=== PATIENT | female | born 1980 ===

== ENCOUNTER 2017-04-23 15:42 | Emergency (ER) | payer OTHER ==
[2017-04-23 15:51] VITALS: BP 113/60; PULSE 83; RESP 16; TEMP 98.1; O2SAT 97
--- NOTE | 2017-04-23 16:30 | ED PDOC ---
HPI: General Adult Time Seen by Provider: 04/23/17 16:00 Chief Complaint (Nursing): Headache Chief Complaint (Provider): Face pain History Per: Patient History/Exam Limitations: no limitations Onset/Duration Of Symptoms: Days Have you had recent travel within the past 21 days to any of the following countries: [place], [place], [place] or [place]?: No Current Symptoms Are (Timing): Still Present Additional Complaint(s): Pt. with cough, congestion, runny nose, face pain. Feels same as her previous sinus infections. Has chronic sinusitis. Mild headaches in frontal that is not worst in her life. No neck pain, numbness, tingles, weakness, fever, chills. Symptoms for 3 weeks. No chest pain, dyspnea. Green dc from nose. Past Medical History Reviewed: Nursing Documentation, Vital Signs Vital Signs: Last Vital Signs Temp 98.1 F 04/23/17 15:49 Pulse 83 04/23/17 15:49 Resp 16 04/23/17 15:49 BP 113/60 04/23/17 15:49 Pulse Ox 97 04/23/17 15:49 - Medical History Other PMH: chronic sinusitis - Surgical History Surgical History: Appendectomy - Family History Family History: States: Unknown Family Hx - Social History Current smoker - smoking cessation education provided: No Alcohol: None Drugs: Denies - Home Medications Home Medications: Ambulatory Orders Medication Instructions Recorded Azithromycin [Zithromax] 250 mg PO DAILY 5 Days tab 04/23/17 Ibuprofen [Motrin] 600 mg PO TID 7 Days tab 04/23/17 - Allergies Allergies/Adverse Reactions: Allergies Allergy/AdvReac Type Severity Reaction Status Date / Time Penicillins Allergy RASH Verified 04/23/17 15:51 Review of Systems ROS Statement: Except As Marked, All Systems Reviewed And Found Negative ENT: Positive for: Nose Pain, Nose Discharge, Nose Congestion Neurological: Positive for: Headache Physical Exam - Reviewed Nursing Documentation Reviewed: Yes Vital Signs Reviewed: Yes - Physical Exam Appears: Positive for: Non-toxic, No Acute Distress Head Exam: Positive for: ATRAUMATIC, NORMAL INSPECTION, NORMOCEPHALIC Skin: Positive for: Normal Color, Warm, DRY Eye Exam: Positive for: EOMI, Normal appearance, PERRL ENT: Positive for: Sinus Pain/Drainage (b/l), Nasal Congestion. Negative for: Pharyngeal Erythema, Tonsillar Exudate Neck: Positive for: Normal, Painless ROM, Supple Cardiovascular/Chest: Positive for: Regular Rate, Rhythm Respiratory: Positive for: CNT, Normal Breath Sounds Gastrointestinal/Abdominal: Positive for: Normal Exam, Bowel Sounds, Soft. Negative for: Tenderness Back: Positive for: Normal Inspection. Negative for: L CVA Tenderness, R CVA Tenderness Extremity: Positive for: Normal ROM. Negative for: Tenderness, Pedal Edema Neurologic/Psych: Positive for: Alert, money laundering investigator II-XII, Oriented. Negative for: Motor/Sensory Deficits - ECG O2 Sat by Pulse Oximetry: 97 Pulse Ox Interpretation: Normal - Progress ED Course And Treament: 1640: Stable. AAOx3. Pain controlled. rx zithromax. URI vs sinusitis. Disposition - Clinical Impression Clinical Impression: URI (upper respiratory infection), Sinusitis - Patient ED Disposition Is Patient to be Admitted: Yes Counseled Patient/Family Regarding: Studies Performed, Diagnosis - Disposition Referrals: [facility] [Outside] - 04/24/17 Disposition: Routine/Home Disposition Time: 16:47 Condition: STABLE Additional Instructions: Return if not better in 3 days. Prescriptions: Azithromycin [Zithromax] 250 mg PO DAILY 5 Days tab Ibuprofen [Motrin] 600 mg PO TID 7 Days tab Instructions: Upper Respiratory Infection (ED), Sinusitis (ED) Print Language: TURKMEN
== END 2017-04-23 17:21 | disposition home or self-care (01) ==
LOC: H.ER 15:42
DX: J32.9 Chronic sinusitis, unspecified (principal); J06.9 Acute upper respiratory infection, unspecified; Z88.0 Allergy status to penicillin

== ENCOUNTER 2017-06-20 21:50 | Emergency (ER) | payer OTHER ==
[2017-06-20 22:17] VITALS: BP 114/67; RESP 18; O2SAT 100
--- NOTE | 2017-06-20 22:18 | ED PDOC ---
HPI: General Adult Time Seen by Provider: 06/20/17 22:17 Chief Complaint (Nursing): Flu-like Symptoms Chief Complaint (Provider): flu like symptoms History Per: Patient Additional Complaint(s): 37-year-old female presents with flu-like symptoms that started 4 days ago including body aches, fever, dry cough and mild sore throat. Patient is tolerating liquids and solids. No vomiting or diarrhea. PMD: none Past Medical History Reviewed: Historical Data, Nursing Documentation, Vital Signs Vital Signs: Last Vital Signs Temp 100.3 F H 06/20/17 23:11 Pulse 107 H 06/20/17 22:14 Resp 18 06/20/17 22:14 BP 114/67 06/20/17 22:14 Pulse Ox 100 06/20/17 22:27 - Medical History PMH: No Chronic Diseases - Surgical History Surgical History: Appendectomy - Family History Family History: States: No Known Family Hx - Living Arrangements Living Arrangements: With Family - Social History Current smoker - smoking cessation education provided: No Alcohol: None Drugs: Denies - Home Medications Home Medications: Ambulatory Orders Medication Instructions Recorded Azithromycin [Zithromax] 250 mg PO DAILY 5 Days tab 04/23/17 Ibuprofen [Motrin] 600 mg PO TID 7 Days tab 04/23/17 Acetaminophen [Tylenol 325mg tab] 650 mg PO Q4 PRN #1 bottle 06/20/17 Azithromycin [Zithromax] 250 mg PO DAILY #4 tab 06/20/17 Ibuprofen [Motrin] 600 mg PO Q6 PRN #20 tab 06/20/17 Oseltamivir Phosphate [Tamiflu] 75 mg PO BID #9 capsule 06/20/17 - Allergies Allergies/Adverse Reactions: Allergies Allergy/AdvReac Type Severity Reaction Status Date / Time Penicillins Allergy RASH Verified 06/20/17 22:14 Review of Systems ROS Statement: Except As Marked, All Systems Reviewed And Found Negative Constitutional: Positive for: Fever, Chills, Other (body aches) ENT: Positive for: Throat Pain Cardiovascular: Negative for: Chest Pain Respiratory: Positive for: Cough Gastrointestinal: Negative for: Nausea, Vomiting, Abdominal Pain, Diarrhea Genitourinary Female: Negative for: Dysuria Neurological: Positive for: Headache. Negative for: Dizziness Physical Exam - Reviewed Nursing Documentation Reviewed: Yes Vital Signs Reviewed: Yes - Physical Exam Appears: Positive for: Well, Non-toxic, No Acute Distress Head Exam: Positive for: ATRAUMATIC Skin: Negative for: Rash Eye Exam: Positive for: Normal appearance ENT: Positive for: Nasal Congestion, Pharyngeal Erythema, Tonsillar Exudate. Negative for: Tonsillar Swelling Cardiovascular/Chest: Positive for: Regular Rate, Rhythm Respiratory: Positive for: Normal Breath Sounds. Negative for: Respiratory Distress Extremity: Positive for: Normal ROM Neurologic/Psych: Positive for: Alert, Oriented - Laboratory Results Urine POC: Negative - ECG O2 Sat by Pulse Oximetry: 100 Pulse Ox Interpretation: Normal - Other Rad CXR X-Ray: Interpreted by Me, Viewed By Me X-Ray Interpretation: no acute finding Medical Decision Making Medical Decision Makin37 year old with flu like symptoms Plan: test PO tylenol and motrin CXR Will treat with Tamiflu and Zithromax. Patient also given prescriptions for Tylenol and Motrin. Advised fluids, rest and follow-up with primary doctor or clinic in 2-3 days. Repeat vitals are stable prior to discharge. Disposition - Clinical Impression Clinical Impression: Influenza-like symptoms, Pharyngitis - Patient ED Disposition Is Patient to be Admitted: No Counseled Patient/Family Regarding: Studies Performed, Diagnosis, Need For Followup, Rx Given - Disposition Referrals: [facility] [Outside] Disposition: Routine/Home Disposition Time: 23:21 Condition: STABLE Additional Instructions: Take prescription meds as directed. Rest and drink plenty of fluids. Follow-up with clinic in 2-3 days. Prescriptions: Acetaminophen [Tylenol 325mg tab] 650 mg PO Q4 PRN #1 bottle PRN Reason: Fever >100.4 F Azithromycin [Zithromax] 250 mg PO DAILY #4 tab Ibuprofen [Motrin] 600 mg PO Q6 PRN #20 tab PRN Reason: Pain, Moderate (4-7) Oseltamivir Phosphate [Tamiflu] 75 mg PO BID #9 capsule Instructions: Sore Throat in Adults, Flu, Adult (DC) Forms: [employer] ([place]) Print Language: [place]
[2017-06-20 23:51] VITALS: PULSE 94; TEMP 99.6
--- NOTE | 2017-06-21 09:00 | RAD ---
HISTORY: cough COMPARISON: No prior. TECHNIQUE: Chest PA and lateral FINDINGS: LUNGS: No active pulmonary disease. PLEURA: No significant pleural effusion identified. No pneumothorax apparent. CARDIOVASCULAR: Normal. OSSEOUS STRUCTURES: No significant abnormalities. VISUALIZED UPPER ABDOMEN: Normal. OTHER FINDINGS: None. IMPRESSION: No acute cardiopulmonary disease appreciated.
== END 2017-06-20 23:52 | disposition home or self-care (01) ==
LOC: H.ER 21:50
DX: J11.1 Influenza due to unidentified influenza virus with other respiratory manifestations (principal); J02.9 Acute pharyngitis, unspecified; Z88.0 Allergy status to penicillin